=== PATIENT | female | born 1960 | race African-American/Black ===

== ENCOUNTER 2021-05-03 12:12 | Inpatient (IN) | payer MEDICAID, OTHER ==
[~2021-05-03] VITALS: Ht 165.1 cm; Wt 68.0 kg
[2021-05-03] MEDS ORDERED: VANCOMYCIN 1 G PREMIX 200 ML IV ONE (12:45)
[2021-05-03] MEDS ORDERED: CEFTRIAXONE 1 G PREMIX 50 ML IV ONE (12:45)
[2021-05-03] MEDS ORDERED: FUROSEMIDE 40MG/4ML VIAL IVP ONE (12:45)
[2021-05-03 13:29] LABS: HEMATOCRIT. 27.2 % (36.0-48.0); HEMOGLOBIN. 8.8 g/dL (12.0-16.0); MEAN CORPUSCULAR HEMOGLOBIN 28.5 pg (28.0-32.0); MEAN CORPUSCULAR VOLUME 87.9 fL (81.0-99.0); MEAN PLATELET VOLUME 6.2 fl (7.4-10.4); PLATELET 397 x1000/uL (130-400); RED BLOOD CELL COUNT 3.09 mill/uL (4.2-5.4); RED CELL DISTRIBUTION WIDTH 15.8 % (11.6-14.6)
[2021-05-03 13:32] LABS: CHLORIDE 99 mEq/L (98-107)
[2021-05-03 13:38] LABS: INR 1.1; PROTHROMBIN TIME 12.1 sec (9.6-11.0)
[2021-05-03 13:42] LABS: CREATINE KINASE 352 IU/L (26-192)
[2021-05-03 14:11] LABS: PLATELET ESTIMATE NORMAL
[2021-05-03] MEDS ORDERED: VANCOMYCIN 1 G PREMIX 200 ML IV SCH (14:45)
[2021-05-03] MEDS ORDERED: NALOXONE HCL 0.4MG/ML VIAL IV PRN (14:45)
[2021-05-03] MEDS ORDERED: HYDROCODONE/ACETAMINOPHEN 5/325MG TABLET PO PRN (14:45)
[2021-05-03] MEDS ORDERED: DOCUSATE SODIUM 100MG CAPSULE PO PRN (14:45)
[2021-05-03] MEDS ORDERED: CLONIDINE 0.1MG TABLET PO PRN (14:45)
[2021-05-03] MEDS ORDERED: PIPERACILLIN/TAZOBACTAM 3.375 G in DEXTROSE 5% WATER 50 ML IV SCH (14:45)
[2021-05-03] MEDS ORDERED: MAGNESIUM/ALUMINUM HYDROXIDE/SIMETHICONE 30ML UDC PO PRN (14:45)
[2021-05-03] MEDS ORDERED: PIPERACILLIN/TAZ 3.375G PREMIX 50 ML IV NR (15:00)
[2021-05-03] MEDS: ENOXAPARIN 40MG/0.4ML SYR SUBCUT SCH (16:48)
[2021-05-03] MEDS: VANCOMYCIN 750 MG PREMIX 150 ML IV SCH (22:00)
[2021-05-03] MEDS: PIPERACILLIN/TAZOBACTAM 3.375G in DEXT 5% WATER 50ML IV SCH (22:00)
[2021-05-04] VITALS (7 sets, daily range): BP systolic 109–144; BP diastolic 61–84
[2021-05-04] MEDS: PIPERACILLIN/TAZOBACTAM 3.375G in DEXT 5% WATER 50ML IV SCH ×3 (05:33→22:19)
[2021-05-04 06:26] LABS: BASOPHILS % 0.3 % (0.0-2.0); EOSINOPHILS % 0.9 % (0.0-5.0); MEAN CORPUSCULAR HEMOGLOBIN 29.1 pg (28.0-32.0); MEAN CORPUSCULAR VOLUME 85.7 fL (81.0-99.0); MEAN PLATELET VOLUME 6.3 fl (7.4-10.4); NEUTROPHILS % 75.8 % (40.0-76.0); PLATELET 299 x1000/uL (130-400); RED BLOOD CELL COUNT 2.33 mill/uL (4.2-5.4); RED CELL DISTRIBUTION WIDTH 15.5 % (11.6-14.6)
[2021-05-04 06:27] LABS: CHLORIDE 104 mEq/L (98-107)
[2021-05-04 06:34] LABS: LDL CHOLESTEROL 41 mg/dL (5-100)
[2021-05-04 06:35] LABS: HDL CHOLESTEROL 20 mg/dL (40-59)
[2021-05-04 07:39] LABS: HEMOGLOBIN. 6.8 g/dL (12.0-16.0)
[2021-05-04] MEDS: AMLODIPINE 10MG TABLET PO SCH (09:00)
[2021-05-04] MEDS: ASPIRIN 81MG EC TABLET PO SCH (09:00)
[2021-05-04] MEDS: VANCOMYCIN 750 MG PREMIX 150 ML IV SCH ×2 (10:12→20:25)
[2021-05-04] MEDS: FUROSEMIDE 40MG/4ML VIAL IV SCH (10:13)
[2021-05-04] MEDS ORDERED: IBUPROFEN 800MG TABLET PO PRN (11:45)
[2021-05-04 12:54] LABS: TOTAL IRON BINDING CAPACITY 72 ug/dL (250-450)
[2021-05-04] MEDS: ENOXAPARIN 40MG/0.4ML SYR SUBCUT SCH (13:41)
[2021-05-04] MEDS: FERROUS SULFATE 325MG TABLET PO SCH ×2 (13:42→18:05)
[2021-05-04] MEDS: ACETAMINOPHEN 325MG TABLET PO PRN (22:19)
[2021-05-05] VITALS: BP 113/62
[2021-05-05 04:00] VITALS: BP 121/76
[2021-05-05] MEDS: PIPERACILLIN/TAZOBACTAM 3.375G in DEXT 5% WATER 50ML IV SCH (05:52)
[2021-05-05 08:00] VITALS: BP 138/80
[2021-05-05] MEDS: ASPIRIN 81MG EC TABLET PO SCH (08:34)
[2021-05-05] MEDS: AMLODIPINE 10MG TABLET PO SCH (08:34)
[2021-05-05] MEDS: VANCOMYCIN 750 MG PREMIX 150 ML IV SCH (08:34)
[2021-05-05] MEDS: FERROUS SULFATE 325MG TABLET PO SCH ×3 (08:34→17:46)
[2021-05-05] MEDS: FUROSEMIDE 40MG/4ML VIAL IV SCH (08:34)
[2021-05-05 12:00] VITALS: BP 134/74
[2021-05-05 16:00] VITALS: BP 120/76
[2021-05-05 20:00] VITALS: BP 151/78
[2021-05-05] MEDS: SULFAMETHOXAZOLE/TRIMETHOPRIM 400/80MG TAB PO SCH (21:03)
[2021-05-06] VITALS: BP 131/74
[2021-05-06 04:00] VITALS: BP 132/74
[2021-05-06] MEDS: ASPIRIN 81MG EC TABLET PO SCH (10:28)
[2021-05-06] MEDS: FERROUS SULFATE 325MG TABLET PO SCH ×3 (10:29→18:51)
[2021-05-06] MEDS: SULFAMETHOXAZOLE/TRIMETHOPRIM 400/80MG TAB PO SCH ×2 (10:30→21:40)
[2021-05-06] MEDS: AMLODIPINE 10MG TABLET PO SCH (10:30)
[2021-05-06] MEDS: FUROSEMIDE 40MG/4ML VIAL IV SCH (10:30)
[2021-05-06 17:32] LABS: CHLORIDE 105 mEq/L (98-107)
[2021-05-06 20:00] VITALS: BP 133/77
[2021-05-06 21:11] LABS: BASOPHILS % 0.6 % (0.0-2.0); EOSINOPHILS % 5.3 % (0.0-5.0); HEMATOCRIT. 23.4 % (36.0-48.0); HEMOGLOBIN. 7.7 g/dL (12.0-16.0); LYMPHOCYTES % 24.7 % (20.0-50.0); MEAN CORPUSCULAR HEMOGLOBIN 28.9 pg (28.0-32.0); MEAN CORPUSCULAR VOLUME 87.5 fL (81.0-99.0); MONOCYTES % 13.1 % (2.0-8.0); NEUTROPHILS % 56.3 % (40.0-76.0); PLATELET 350 x1000/uL (130-400); RED BLOOD CELL COUNT 2.68 mill/uL (4.2-5.4); RED CELL DISTRIBUTION WIDTH 15.1 % (11.6-14.6)
[2021-05-06] MEDS: ACETAMINOPHEN 325MG TABLET PO PRN (21:42)
[2021-05-07 08:00] VITALS: BP 137/78
[2021-05-07] MEDS: ASPIRIN 81MG EC TABLET PO SCH (09:00)
[2021-05-07] MEDS: AMLODIPINE 10MG TABLET PO SCH (09:00)
[2021-05-07] MEDS: SULFAMETHOXAZOLE/TRIMETHOPRIM 400/80MG TAB PO SCH ×2 (09:58→21:54)
[2021-05-07] MEDS: FERROUS SULFATE 325MG TABLET PO SCH ×3 (09:59→18:35)
[2021-05-07] MEDS: FUROSEMIDE 40MG/4ML VIAL IV SCH (09:59)
[2021-05-07 12:00] VITALS: BP 125/71
[2021-05-07 16:00] VITALS: BP 139/68
[2021-05-07 20:00] VITALS: BP 134/68
[2021-05-08] VITALS: BP 144/72
[2021-05-08 04:00] VITALS: BP 144/79
[2021-05-08 07:43] VITALS: BP 133/62
[2021-05-08] MEDS: ASPIRIN 81MG EC TABLET PO SCH (08:15)
[2021-05-08] MEDS: AMLODIPINE 10MG TABLET PO SCH (08:15)
[2021-05-08] MEDS: FUROSEMIDE 40MG/4ML VIAL IV SCH (09:00)
[2021-05-08] MEDS: SULFAMETHOXAZOLE/TRIMETHOPRIM 400/80MG TAB PO SCH ×2 (09:44→21:42)
[2021-05-08] MEDS: FERROUS SULFATE 325MG TABLET PO SCH ×3 (09:44→18:14)
[2021-05-08] MEDS: FUROSEMIDE 40MG TABLET PO SCH (11:00)
[2021-05-08 12:00] VITALS: BP 165/81
[2021-05-08 16:00] VITALS: BP 146/82
[2021-05-08 20:00] VITALS: BP 144/82
[2021-05-09 04:00] VITALS: BP 146/75
[2021-05-09 08:00] VITALS: BP 142/77
[2021-05-09] MEDS: AMLODIPINE 10MG TABLET PO SCH (09:00)
[2021-05-09] MEDS: ASPIRIN 81MG EC TABLET PO SCH (09:00)
[2021-05-09] MEDS: FUROSEMIDE 40MG TABLET PO SCH (09:00)
[2021-05-09] MEDS: FERROUS SULFATE 325MG TABLET PO SCH ×3 (09:13→18:21)
[2021-05-09] MEDS: SULFAMETHOXAZOLE/TRIMETHOPRIM 400/80MG TAB PO SCH ×2 (09:13→21:52)
[2021-05-09] MEDS: SODIUM HYPOCHLORITE 0.125% 473ML SOLUTION TOP SCH (09:14)
[2021-05-09] MEDS: MULTIVITAMINS,THER W-MINERALS TABLET PO SCH (11:35)
[2021-05-09 12:00] VITALS: BP 129/74
[2021-05-09 16:00] VITALS: BP 145/79
[2021-05-09 20:00] VITALS: BP 141/74
[2021-05-10] VITALS: BP 137/84
[2021-05-10 04:00] VITALS: BP 146/77
[2021-05-10 08:00] VITALS: BP 132/80
[2021-05-10] MEDS: SODIUM HYPOCHLORITE 0.125% 473ML SOLUTION TOP SCH (09:00)
[2021-05-10] MEDS: ASPIRIN 81MG EC TABLET PO SCH ×2 (09:00→09:44)
[2021-05-10] MEDS: FUROSEMIDE 40MG TABLET PO SCH ×2 (09:00→09:44)
[2021-05-10] MEDS: AMLODIPINE 10MG TABLET PO SCH ×2 (09:00→09:45)
[2021-05-10] MEDS: FERROUS SULFATE 325MG TABLET PO SCH ×3 (09:44→18:51)
[2021-05-10] MEDS: SULFAMETHOXAZOLE/TRIMETHOPRIM 400/80MG TAB PO SCH ×2 (09:44→21:37)
[2021-05-10] MEDS: MULTIVITAMINS,THER W-MINERALS TABLET PO SCH (09:44)
[2021-05-10 12:00] VITALS: BP 150/83
[2021-05-10 16:00] VITALS: BP 94/61
[2021-05-10 20:00] VITALS: BP 114/64
[2021-05-11] VITALS: BP 112/69
[2021-05-11 04:00] VITALS: BP 131/74
[2021-05-11] MEDS: FERROUS SULFATE 325MG TABLET PO SCH ×3 (06:54→18:27)
[2021-05-11 08:00] VITALS: BP 109/65
[2021-05-11] MEDS: FUROSEMIDE 40MG TABLET PO SCH (08:30)
[2021-05-11] MEDS: MULTIVITAMINS,THER W-MINERALS TABLET PO SCH (08:30)
[2021-05-11] MEDS: SODIUM HYPOCHLORITE 0.125% 473ML SOLUTION TOP SCH (08:30)
[2021-05-11] MEDS: ASPIRIN 81MG EC TABLET PO SCH (08:30)
[2021-05-11] MEDS: AMLODIPINE 10MG TABLET PO SCH (08:31)
[2021-05-11 12:00] VITALS: BP 120/77
[2021-05-11 16:00] VITALS: BP 119/75
[2021-05-11 20:00] VITALS: BP 145/80
[2021-05-12] VITALS: BP 133/76
[2021-05-12 04:00] VITALS: BP 131/80
[2021-05-12 08:00] VITALS: BP 136/71
[2021-05-12] MEDS: ASPIRIN 81MG EC TABLET PO SCH ×2 (09:00→09:11)
[2021-05-12] MEDS: AMLODIPINE 10MG TABLET PO SCH ×2 (09:00→09:11)
[2021-05-12] MEDS: FUROSEMIDE 40MG TABLET PO SCH ×2 (09:00→09:10)
[2021-05-12] MEDS: MULTIVITAMINS,THER W-MINERALS TABLET PO SCH (09:10)
[2021-05-12] MEDS: FERROUS SULFATE 325MG TABLET PO SCH ×3 (09:11→18:09)
[2021-05-12] MEDS: SODIUM HYPOCHLORITE 0.125% 473ML SOLUTION TOP SCH (09:12)
[2021-05-12 12:00] VITALS: BP 142/85
[2021-05-12 20:00] VITALS: BP 117/61
[2021-05-13] VITALS: BP 127/83
[2021-05-13 04:00] VITALS: BP 152/82
[2021-05-13 08:00] VITALS: BP 131/92
[2021-05-13] MEDS: AMLODIPINE 10MG TABLET PO SCH ×2 (09:00→09:59)
[2021-05-13] MEDS: FUROSEMIDE 40MG TABLET PO SCH ×2 (09:00→09:58)
[2021-05-13] MEDS: ASPIRIN 81MG EC TABLET PO SCH ×2 (09:00→09:59)
[2021-05-13] MEDS: SODIUM HYPOCHLORITE 0.125% 473ML SOLUTION TOP SCH (09:59)
[2021-05-13] MEDS: MULTIVITAMINS,THER W-MINERALS TABLET PO SCH (09:59)
[2021-05-13] MEDS: FERROUS SULFATE 325MG TABLET PO SCH ×3 (09:59→17:46)
[2021-05-13 12:00] VITALS: BP 137/91
[2021-05-13] MEDS: OLANZAPINE 5MG TABLET ODT PO SCH (15:00)
[2021-05-13] MEDS: DIVALPROEX SODIUM 500MG ER TABLET PO SCH (15:00)
[2021-05-13 16:00] VITALS: BP 128/69
[2021-05-13 20:00] VITALS: BP 107/57
[2021-05-14] VITALS: BP 127/79
[2021-05-14 04:00] VITALS: BP 104/59
[2021-05-14 08:00] VITALS: BP 137/82
[2021-05-14] MEDS: MULTIVITAMINS,THER W-MINERALS TABLET PO SCH (08:27)
[2021-05-14] MEDS: FERROUS SULFATE 325MG TABLET PO SCH ×3 (08:27→18:32)
[2021-05-14] MEDS: ASPIRIN 81MG EC TABLET PO SCH (09:00)
[2021-05-14] MEDS: SODIUM HYPOCHLORITE 0.125% 473ML SOLUTION TOP SCH (09:00)
[2021-05-14] MEDS: DIVALPROEX SODIUM 500MG ER TABLET PO SCH (09:00)
[2021-05-14] MEDS: FUROSEMIDE 40MG TABLET PO SCH (09:00)
[2021-05-14] MEDS: AMLODIPINE 10MG TABLET PO SCH (09:00)
[2021-05-14] MEDS: OLANZAPINE 5MG TABLET ODT PO SCH (09:00)
[2021-05-14 12:00] VITALS: BP 103/56
[2021-05-14 16:00] VITALS: BP 125/61
[2021-05-14 20:00] VITALS: BP 112/60
[2021-05-15] VITALS: BP 102/64
[2021-05-15 04:00] VITALS: BP 131/71
[2021-05-15 08:00] VITALS: BP 137/79
[2021-05-15] MEDS: AMLODIPINE 10MG TABLET PO SCH (09:00)
[2021-05-15] MEDS: DIVALPROEX SODIUM 500MG ER TABLET PO SCH (09:00)
[2021-05-15] MEDS: OLANZAPINE 5MG TABLET ODT PO SCH (09:00)
[2021-05-15] MEDS: ASPIRIN 81MG EC TABLET PO SCH (09:00)
[2021-05-15] MEDS: FUROSEMIDE 40MG TABLET PO SCH (09:00)
[2021-05-15] MEDS: FERROUS SULFATE 325MG TABLET PO SCH ×3 (09:45→18:52)
[2021-05-15] MEDS: MULTIVITAMINS,THER W-MINERALS TABLET PO SCH (09:45)
[2021-05-15] MEDS: SODIUM HYPOCHLORITE 0.125% 473ML SOLUTION TOP SCH (09:50)
[2021-05-15 12:00] VITALS: BP 124/74
[2021-05-15 16:00] VITALS: BP_SYST 122; BP_SYST 124; BP_DIAS 74; BP_DIAS 76
[2021-05-15 20:00] VITALS: BP 109/62
[2021-05-16] VITALS: BP 101/55
[2021-05-16 04:00] VITALS: BP 122/68
[2021-05-16 08:00] VITALS: BP 112/62
[2021-05-16] MEDS: FUROSEMIDE 40MG TABLET PO SCH (09:00)
[2021-05-16] MEDS: OLANZAPINE 5MG TABLET ODT PO SCH (09:00)
[2021-05-16] MEDS: ASPIRIN 81MG EC TABLET PO SCH (09:00)
[2021-05-16] MEDS: AMLODIPINE 10MG TABLET PO SCH (09:00)
[2021-05-16] MEDS: DIVALPROEX SODIUM 500MG ER TABLET PO SCH (09:00)
[2021-05-16] MEDS: SODIUM HYPOCHLORITE 0.125% 473ML SOLUTION TOP SCH (09:00)
[2021-05-16] MEDS: MULTIVITAMINS,THER W-MINERALS TABLET PO SCH (09:48)
[2021-05-16] MEDS: FERROUS SULFATE 325MG TABLET PO SCH ×3 (09:48→19:13)
[2021-05-16 12:00] VITALS: BP 134/72
[2021-05-16 14:02] VITALS: BP 134/72
[2021-05-16 16:00] VITALS: BP 134/72
[2021-05-17 00:09] VITALS: BP 116/70
[2021-05-17 04:00] VITALS: BP 131/79
[2021-05-17 08:00] VITALS: BP 122/60
[2021-05-17] MEDS: FUROSEMIDE 40MG TABLET PO SCH (08:31)
[2021-05-17] MEDS: DIVALPROEX SODIUM 500MG ER TABLET PO SCH (08:31)
[2021-05-17] MEDS: SODIUM HYPOCHLORITE 0.125% 473ML SOLUTION TOP SCH (08:31)
[2021-05-17] MEDS: ASPIRIN 81MG EC TABLET PO SCH (08:31)
[2021-05-17] MEDS: OLANZAPINE 5MG TABLET ODT PO SCH (08:31)
[2021-05-17] MEDS: AMLODIPINE 10MG TABLET PO SCH (08:31)
[2021-05-17] MEDS: FERROUS SULFATE 325MG TABLET PO SCH ×3 (09:27→18:12)
[2021-05-17] MEDS: MULTIVITAMINS,THER W-MINERALS TABLET PO SCH (09:27)
[2021-05-17 12:00] VITALS: BP 107/81
[2021-05-17 16:00] VITALS: BP 112/64
[2021-05-17 20:00] VITALS: BP 109/65
[2021-05-18] VITALS: BP 115/63
[2021-05-18 04:00] VITALS: BP 146/83
[2021-05-18 08:00] VITALS: BP 118/63
[2021-05-18] MEDS: AMLODIPINE 10MG TABLET PO SCH ×2 (09:00→10:34)
[2021-05-18] MEDS: FUROSEMIDE 40MG TABLET PO SCH ×2 (09:00→10:34)
[2021-05-18] MEDS: ASPIRIN 81MG EC TABLET PO SCH ×2 (09:00→10:34)
[2021-05-18] MEDS: OLANZAPINE 5MG TABLET ODT PO SCH ×2 (09:00→10:33)
[2021-05-18] MEDS: DIVALPROEX SODIUM 500MG ER TABLET PO SCH ×2 (09:00→10:33)
[2021-05-18] MEDS: FERROUS SULFATE 325MG TABLET PO SCH ×3 (10:33→18:28)
[2021-05-18] MEDS: MULTIVITAMINS,THER W-MINERALS TABLET PO SCH (10:34)
[2021-05-18] MEDS: SODIUM HYPOCHLORITE 0.125% 473ML SOLUTION TOP SCH (10:35)
[2021-05-18 12:00] VITALS: BP 125/66
[2021-05-18 16:00] VITALS: BP 124/65
[2021-05-18 20:00] VITALS: BP 116/68
[2021-05-19] VITALS: BP 137/71
[2021-05-19 04:00] VITALS: BP 108/64
[2021-05-19 08:00] VITALS: BP 129/76
[2021-05-19] MEDS: ASPIRIN 81MG EC TABLET PO SCH (09:00)
[2021-05-19] MEDS: DIVALPROEX SODIUM 500MG ER TABLET PO SCH (09:00)
[2021-05-19] MEDS: SODIUM HYPOCHLORITE 0.125% 473ML SOLUTION TOP SCH (09:00)
[2021-05-19] MEDS: OLANZAPINE 5MG TABLET ODT PO SCH (09:00)
[2021-05-19] MEDS: FUROSEMIDE 40MG TABLET PO SCH (09:00)
[2021-05-19] MEDS: AMLODIPINE 10MG TABLET PO SCH (09:00)
[2021-05-19] MEDS: MULTIVITAMINS,THER W-MINERALS TABLET PO SCH (10:01)
[2021-05-19] MEDS: FERROUS SULFATE 325MG TABLET PO SCH ×3 (10:02→17:50)
[2021-05-19 12:00] VITALS: BP 146/83
[2021-05-19 16:00] VITALS: BP 122/72
[2021-05-19 20:00] VITALS: BP 157/84
[2021-05-20] VITALS: BP 140/80
[2021-05-20 04:00] VITALS: BP 140/76
[2021-05-20] MEDS: FERROUS SULFATE 325MG TABLET PO SCH ×2 (07:50→13:35)
[2021-05-20 08:00] VITALS: BP 132/66
[2021-05-20] MEDS: MULTIVITAMINS,THER W-MINERALS TABLET PO SCH (09:00)
[2021-05-20] MEDS: OLANZAPINE 5MG TABLET ODT PO SCH (09:00)
[2021-05-20] MEDS: DIVALPROEX SODIUM 500MG ER TABLET PO SCH (09:00)
[2021-05-20] MEDS: FUROSEMIDE 40MG TABLET PO SCH (09:00)
[2021-05-20] MEDS: ASPIRIN 81MG EC TABLET PO SCH (09:00)
[2021-05-20] MEDS: SODIUM HYPOCHLORITE 0.125% 473ML SOLUTION TOP SCH (09:00)
[2021-05-20] MEDS: AMLODIPINE 10MG TABLET PO SCH (09:00)
[2021-05-20 12:00] VITALS: BP 137/79
[2021-05-20 15:55] VITALS: BP 137/79
== END 2021-05-20 16:20 | disposition home or self-care (01) | DRG 720 ==
LOC: ER 12:21 → 6EST 14:00 → ENRESERV 20:28
PROVIDERS: ADMIT Hospitalist; ATTEND Hospitalist
PROC: 0JBP0ZZ Excision of Left Lower Leg Subcutaneous Tissue and Fascia, Open Approach (ICD-10-PCS; principal; 2021-05-04)
PROC: 0JBN0ZZ Excision of Right Lower Leg Subcutaneous Tissue and Fascia, Open Approach (ICD-10-PCS; 2021-05-04)
PROC: 0JBP0ZZ Excision of Left Lower Leg Subcutaneous Tissue and Fascia, Open Approach (ICD-10-PCS; 2021-05-11)
PROC: 0JBN0ZZ Excision of Right Lower Leg Subcutaneous Tissue and Fascia, Open Approach (ICD-10-PCS; 2021-05-11)
PROC: 0JBP0ZZ Excision of Left Lower Leg Subcutaneous Tissue and Fascia, Open Approach (ICD-10-PCS; 2021-05-18)
PROC: 0JBN0ZZ Excision of Right Lower Leg Subcutaneous Tissue and Fascia, Open Approach (ICD-10-PCS; 2021-05-18)
DX: A41.9 Sepsis, unspecified organism (principal); E43 Unspecified severe protein-calorie malnutrition; J18.9 Pneumonia, unspecified organism; F29 Unspecified psychosis not due to a substance or known physiological condition; L03.116 Cellulitis of left lower limb; I87.2 Venous insufficiency (chronic) (peripheral); D64.9 Anemia, unspecified; R53.1 Weakness; I10 Essential (primary) hypertension; F31.9 Bipolar disorder, unspecified; Z68.25 Body mass index [BMI] 25.0-25.9, adult; W18.30XA Fall on same level, unspecified, initial encounter
CPT/HCPCS: 36415; 80053; 80061; 80202; 82550; 83540; 83550; 83605; 83880; 84145; 85025; 86850; 86900; 86920; 87070; 87075; 87107; 87186; 93005; 93306; 93970; 97110; 97116; 97162; 97530; 99285; A6261; J0696; J1650; J1940; J2543; J3370; J7040; J7060

== ENCOUNTER 2021-08-14 15:01 | Emergency (ER) | payer MEDICAID ==
[~2021-08-14] VITALS: Ht 167.6 cm; Wt 68.0 kg
[2021-08-14 15:07] VITALS: BP 134/78
[2021-08-14 20:23] LABS: HEMATOCRIT. 29.7 % (36.0-48.0); HEMOGLOBIN. 9.9 g/dL (12.0-16.0); MEAN CORPUSCULAR HEMOGLOBIN 28.2 pg (28.0-32.0); MEAN PLATELET VOLUME 6.7 fl (7.4-10.4); PLATELET 310 x1000/uL (130-400); RED CELL DISTRIBUTION WIDTH 15.3 % (11.6-14.6)
[2021-08-14 20:29] LABS: CHLORIDE 109 mEq/L (98-107)
[2021-08-14 22:28] LABS: PLATELET ESTIMATE NORMAL
[2021-08-14] MEDS ORDERED: CEPH500C2 MT (23:45)
== END 2021-08-14 16:26 | disposition home or self-care (01) ==
LOC: ER 15:01
DX: M79.89 Other specified soft tissue disorders (principal); R53.1 Weakness; D64.9 Anemia, unspecified
CPT/HCPCS: 36415; 80053; 83880; 84484; 85025; 93005; 93970; 99285